=== PATIENT | female | born 1940 | race Caucasian/White ===

== ENCOUNTER → 2020-01-14 | Emergency (ER) | payer OTHER ==
[~2020-01-14] VITALS: Ht 152.4 cm; Wt 59.0 kg
[~2020-01-14] MED LIST: PHYTONADIONE(VitK) ORAL Susp 10mg/10ml(1mg/ml) PO ONE
[2020-01-14 15:43] LABS: Basophils # (auto) 0 10 ^3/uL (0-0.2); Basophils % (auto) 1.1 % (0.0-2.0); Eosinophils # (auto) 0.2 10 ^3/uL (0-0.8); Hematocrit 40.1 % (36.0-46.0); Hemoglobin 13.4 g/dL (12.2-16.2); Lymphocytes # (auto) 1.6 10 ^3/uL (0.4-5.4); Lymphocytes % (auto) 37.9 % (10.0-50.0); Mean Corpuscular Hgb Conc. 33.4 g/dL (32.0-36.0); Mean Corpuscular Volume 89.9 fL (80.0-100.0); Monocytes # (auto) 0.5 10 ^3/uL (0-1.3); Neutrophils # (auto) 1.9 10 ^3/uL (1.6-8.6); Nucleated Red Blood Cells % 0.1 %; Platelet Count (auto) 153 10^3/uL (140-450); Red Blood Cells 4.46 10^6/uL (4.0-5.20); Red Cell Distribution Width 14.7 % (11.8-14.3); White Blood Cell 4.3 10^3/uL (4.4-10.8)
[2020-01-14 16:03] LABS: Albumin 3.4 g/dL (3.4-5.0); Calcium 8.9 mg/dL (8.5-10.1); Potassium 4.3 mmol/L (3.5-5.1)
[2020-01-14 16:05] LABS: BUN/Creatinine Ratio 13.1
[2020-01-14 16:10] LABS: Bilirubin, Total 0.4 mg/dL (0.2-1.0); Total Protein 7.1 g/dL (6.4-8.2)
[2020-01-14 17:09] LABS: Partial Thromboplastin Time 48.1 sec (23.64-32.05)
[2020-01-14 17:22] LABS: INR > 8.0 (0.9-1.15)
[2020-01-15 01:38] VITALS: BP 130/89
== END | disposition home or self-care (01) ==
LOC: EDUNIT# 14:02 → EDBD 14:14 → ER 14:14
DX: I11.0 Hypertensive heart disease with heart failure (principal); I50.9 Heart failure, unspecified; I48.0 Paroxysmal atrial fibrillation; Z95.0 Presence of cardiac pacemaker; Z88.2 Allergy status to sulfonamides
CPT/HCPCS: 36415; 71045; 80053; 83735; 83880; 84443; 84484; 85025; 85610; 85730; 93005; 99285; J3430